=== PATIENT | male | born 1970 | race Hispanic/Latino ===

== ENCOUNTER 2019-01-15 16:07 | Emergency (ER) | payer SELFPAY ==
[2019-01-15] MEDS ORDERED: LIDOCAINE HCL 1% 20 ML VIAL ONE (16:38)
[2019-01-15] MEDS ORDERED: TETANUS/DIPHTHERIA TOXOID [ADULT] 0.5 ML VIAL IM ONE (16:39)
== END 2019-01-15 17:01 | disposition home or self-care (01) ==
LOC: EDH 16:07
DX: S71.112A Laceration without foreign body, left thigh, initial encounter (principal); W26.8XXA Contact with other sharp object(s), not elsewhere classified, initial encounter; Y93.89 Activity, other specified; Y92.89 Other specified places as the place of occurrence of the external cause; Y99.8 Other external cause status
CPT/HCPCS: 12032; 90471; 90714

== ENCOUNTER 2019-01-24 17:08 | Emergency (ER) | payer SELFPAY | END 2019-01-24 17:48 | disposition home or self-care (01) | LOC: EDH 17:08 | DX: S71.112D Laceration without foreign body, left thigh, subsequent encounter (principal); Z72.0 Tobacco use; X58.XXXD Exposure to other specified factors, subsequent encounter ==

== ENCOUNTER 2019-01-28 10:02 | Emergency (ER) | payer SELFPAY | END 2019-01-28 10:35 | disposition home or self-care (01) | LOC: EDH 10:02 | DX: S71.112D Laceration without foreign body, left thigh, subsequent encounter (principal); Z72.0 Tobacco use; X58.XXXD Exposure to other specified factors, subsequent encounter | CPT/HCPCS: 99281 ==